=== PATIENT | male | born 1990 | race Caucasian/White ===

== ENCOUNTER 2022-11-22 04:39 | Emergency (ER) | payer BC ==
[~2022-11-22] VITALS: Ht 177.8 cm; Wt 81.6 kg
== END 2022-11-22 08:09 | disposition home or self-care (01) ==
LOC: ED 04:39
DX: R51.9 Headache, unspecified (principal); M25.561 Pain in right knee; M25.571 Pain in right ankle and joints of right foot; M79.651 Pain in right thigh; V89.2XXA Person injured in unspecified motor-vehicle accident, traffic, initial encounter; Y93.I9 Activity, other involving external motion; Y92.488 Other paved roadways as the place of occurrence of the external cause; Y99.8 Other external cause status